=== PATIENT | male | born 1990 | race Caucasian/White ===

== ENCOUNTER 2024-01-20 12:37 | Emergency (ER) | payer SELFPAY ==
[~2024-01-20] VITALS: Ht 162.6 cm; Wt 68.0 kg
[2024-01-20 12:39] VITALS: O2SAT 100
[2024-01-20 12:58] VITALS: BP 138/65; PULSE 98; RESP 18; TEMP 98.7; O2SAT 99
== END 2024-01-20 13:02 | disposition home or self-care (01) ==
LOC: ER 12:37
DX: F41.9 Anxiety disorder, unspecified (principal); G47.00 Insomnia, unspecified
CPT/HCPCS: 99281